=== PATIENT | female | born 1975 | race Caucasian/White ===

== ENCOUNTER 2021-06-22 11:32 | Outpatient (CLI) | payer OTHER, SELFPAY ==
[2021-06-22 13:17] LABS: SARS-CoV-2 RNA PCR Positive (Negative)
== END 2021-06-22 11:33 | disposition home or self-care (01) ==
LOC: CHSLAB 11:35
PROVIDERS: PCP Nurse Practitioner Family; Visit Provider Nurse Practitioner Family
DX: U07.1 COVID-19 (principal); J02.9 Acute pharyngitis, unspecified
CPT/HCPCS: C9803; U0003; U0005

== ENCOUNTER 2021-06-25 12:23 | Outpatient (CLI) | payer OTHER, SELFPAY ==
[2021-06-25] MEDS: ACETAMINOPHEN 325 MG TABLET 650 MG PO (12:49)
[2021-06-25] MEDS: FAMOTIDINE 20 MG TABLET PO (12:50)
[2021-06-25] MEDS: diphenhydrAMINE HCl CAP 25 MG CAPSULE PO (12:50)
[2021-06-25 12:51] VITALS: BMI 24.7
[2021-06-25 12:54] VITALS: BP 107/60; PULSE 68; RESP 12; TEMP 36.8; O2SAT 99
[2021-06-25 14:13] VITALS: BP 102/60; PULSE 64; RESP 12; TEMP 37.1; O2SAT 99
--- NOTE | 2021-06-25 14:14 | PC.NURSE ---
Patient here for Regeneron IV infusion r/t covid positive and meeting high risk scale. Education on medication given. No concerns voiced. Permit signed. PO pre meds and IV regeneron regimen administered. SEE MAR. Tolerated well. Safe exit of hospital.
== END 2021-06-25 12:24 | disposition home or self-care (01) ==
PROVIDERS: PCP Nurse Practitioner Family; Visit Provider Nurse Practitioner Family
DX: Z23 Encounter for immunization (principal); U07.1 COVID-19
CPT/HCPCS: A9270; J7050; M0243

== ENCOUNTER → 2022-11-19 08:55 | Outpatient (CLI) | payer OTHER, SELFPAY ==
--- NOTE | ~2022-11-19 | MR_ITS ---
MRI of the left shoulder Technique: Axial proton-density fat-sat images, coronal proton density fat-sat and T2 fat-sat images, and sagittal T1-weighted and T2 fat-sat images were acquired. Clinical History: Pain Findings: There is moderate AC joint degenerative change, with small subacromial spur present as well as bony productive change of the distal clavicle. Coracoclavicular, coracoacromial, and coracohumera l ligaments are intact. Supraspinatus and infraspinatus tendons are intact, without partial or full-thickness tear. There is minimal tendinosis. Subscapularis tendon is intact with mild tendinosis. Tendon of long head of the b iceps is intact. No labral tear identified. Inferior glenohumeral ligament is intact. No degenerative change or effusion of the glenohumeral join t. No significant fluid distention of the subacromial/subdeltoid bursa. No muscle atrophy or edema. Impression: Mild rotator cuff tendinosis. No partial or full-thickness tear. No labral tear evident. Moderate AC joint degenerative change. Reviewed, dictated and finalized at [facility]. [employer] Impression: Mild rotator cuff tendinosis. No partial or full-thickness tear. No labral tear evident. Moderate AC joint degenerative change.
== END ==
PROVIDERS: PCP Nurse Practitioner Family; Visit Provider Nurse Practitioner Family
DX: M25.512 Pain in left shoulder (principal); R93.6 Abnormal findings on diagnostic imaging of limbs
CPT/HCPCS: 73221

== ENCOUNTER → 2023-01-09 12:56 | Outpatient (CLI) | payer OTHER, SELFPAY ==
--- NOTE | ~2023-01-09 | MR_ITS ---
EXAMINATION: MR cervical spine wo con DATE: 01/09/2023 13:33 INDICATION: Neck and shoulder pain. TECHNIQUE: Magnetic resonance imaging (MRI) of the cervical spine was performed without intravenous c ontrast. COMPARISON: None FINDINGS: There is kyphosis of cervical spine. Vertebral body heights are normal. There is mildly dec reased disc height from C4-C5 through C6-C7. The spinal cord signal intensity is normal. The followin g disc levels are specifically discussed: C2-C3: The disc does not extend beyond the endplate margin. There is no uncovertebral joint osteoarth ritis. There is mild bilateral facet joint osteoarthritis. There is no neural foraminal stenosis. The re is no central canal stenosis. C3-C4: The disc is bulging and has an annular fissure. There is mild bilateral uncovertebral joint os teoarthritis. There is mild right and moderate left facet joint osteoarthritis. There is mild left ne ural foraminal stenosis. There is mild central canal stenosis. C4-C5: The disc is bulging with superimposed central extrusion. There is moderate bilateral uncoverte bral joint osteoarthritis. There is mild bilateral facet joint osteoarthritis. There is no neural for aminal stenosis. There is mild central canal stenosis with ventral indentation of the spinal cord. C5-C6: The disc is bulging. There is moderate right and severe left uncovertebral joint osteoarthriti s. There is no facet joint osteoarthritis. There is mild bilateral neural foraminal stenosis. There i s mild central canal stenosis. C6-C7: The disc is bulging. There is moderate right and severe left uncovertebral joint osteoarthriti s. There is no facet joint osteoarthritis. There is mild left neural foraminal stenosis. There is mil d central canal stenosis. C7-T1: The disc is mildly bulging. There is no uncovertebral joint osteoarthritis. There is no facet joint osteoarthritis. There is no neural foraminal stenosis. There is no central canal stenosis. IMPRESSION: 1. Mild cervical spondylosis. Reviewed, dictated and finalized at location A.
== END ==
PROVIDERS: PCP Nurse Practitioner Family; Visit Provider Nurse Practitioner Family
DX: M47.892 Other spondylosis, cervical region (principal)
CPT/HCPCS: 72141

== ENCOUNTER 2023-03-13 01:36 | Day surgery (SDC) | payer OTHER, SELFPAY ==
[2023-03-01 14:29] VITALS: BMI 24.5
--- NOTE | 2023-03-01 14:35 | PC.NURSE ---
Report to the Outpatient Waiting Room, entrance under the green pavilion located off [facility], at time 0815 on date 03/13/23. Planned Procedure Time: 1015. Time changes happen often and if your time is changed the preop area will call you the afternoon before. - You and your visitor will be asked to self-screen and do not enter if you have any COVID symptoms. - A mask is optional within the hospital at this time. Patients may have clear liquids (water, carbonated beverages, clear teas, apple juice) until 3 hours prior to surgery with a maximum of 20 ounces. - No food from midnight until time of surgery Take the following medications with a SIP of water the morning of surgery: NONE DO NOT STOP ANY OF YOUR OTHER PRESCRIPTION MEDICATIONS PRIOR TO SURGERY ?EXCEPT THE FOLLOWING Medications to discontinue per physician: VITAMINS Date to take last dose: 03/09/23 Please no make-up, nail kyrgyz, hairspray, perfume, deodorant, or body powder the day of surgery. No jewelry (including any body piercings) or valuables the day of surgery, leave them at home. Please take a shower or bath the night before, or the morning of, surgery with an antibacterial soap. Wear comfortable, loose fitting clothing. - Jewelry must be removed prior to entering the operating room. Rings and piercings that are not removed may be cut off. - The hospital will not accept responsibility for valuables. - Please leave all valuables, including medications, at home the day of surgery. If you are going home after surgery, a licensed [employer] flatbed driver must drive you home. - NO public transportation without another adult if you receive anesthesia. - We recommend that an adult stay with you for 24 hours following discharge. - We also recommend that you do not drive, make important decision, drink alcoholic beverages, or take any drugs that were not prescribed by your health care provider for at least 24 hours after your discharge time. Follow any additional instructions given to you from your surgeon. If you or anyone in your household have experienced Covid symptoms in the past week, please notify your surgeon or the nurse liaison at the phone number below for possible testing. Telephone instructions given to PT - ANGELICA RIVERO and asked if any additional questions and then verbalized understanding. Patient advised to call surgeon office or pre surgery nurse liaison [phone] if any additional questions.
--- NOTE | 2023-03-13 07:33 | WPDHPUPDATE1 ---
History and Physical Update Update Date/Time: 03/13/23 07:33 History and Physical has been reviewed, including an updated exam of the patient. There are NO changes in the patient's condition. Risks, benefits, and alternatives have been discussed and questions answered. Patient agrees to proceed with procedure.
--- NOTE | 2023-03-13 07:33 | PM.HPGS ---
History of Present Illness History of Present Illness Consent: Risks, benefits, and alternatives have been discussed and questions answered. Patient agrees to proceed with procedure. Chief complaint: menorrhagia Narrative: Silvestre Gee is a 47 year old female with frequents and long bleeding episodes in August and in January. It is recommended to proceed with D&C hysteroscopy to further evaluate. Risks of infection, bleeding, perforation, and possible pathology were reviewed. The patient has voiced understanding and agrees to proceed. Review of Systems Review of Systems: not repeated day of surgery; patient states no changes in status PMF Past Medical History Medical History (Updated 03/13/23 @ 07:37 by Dory Rodarte MD) Tobacco dependence 26 year smoking history Surgical History Surgical History (Updated 03/13/23 @ 07:36 by Dory Rodarte MD) History of bilateral tubal ligation with 2013 section History of breast augmentation History of D&C 2011 for miscarriage History of laparoscopy with removal of right dermoid and right oophorectomy Hx of section 2013 and 2010 Family History Family History Mother Family history of hypothyroidism Hypertension Father Family history of type 2 diabetes mellitus Hypertension Social History Social History (Updated 10/20/22 @ 09:19 by Jael Leiva MA) Smoking packs per day: 0.5 Smoking cigarettes per day: 10.0 Years smoked: 29 Smoking pack-years: 14.50 Smoking status: Current every day smoker Tobacco type: cigarettes Alcohol intake: current Drinks per week: 5 Substance use: never Substance use type: does not use Lack of Transportation: No Lack of Food: Never True Current Housing: I Have Housing Concerned About Future Housing: No Difficulty Paying Gas/Electric Bills: No Difficulty Paying for Meds: No Currently Unemployed: No Education: Bachelor's Degree Difficulty w/ Childcare or Family Care: No Living arrangements: with family Spiritual care concerns: No Meds Home Medications and Allergies Home Medications Medication Instructions Recorded Confirmed Type conj estrogen-medroxyprogesterone 1 tablet PO DAILY 06/25/21 03/01/23 History 0.625 mg-2.5 mg tablet (Prempro) cholecalciferol (vitamin D3) 125 125 mcg PO DAILY 03/01/23 03/01/23 History mcg (5,000 unit) tablet (Vitamin D3) Allergies Allergy/AdvReac Type Severity Reaction Status Date / Time No Known Allergies Allergy Verified 03/01/23 14:28 Exam Const: General: healthy appearing and alert Orientation/consciousness: patient oriented x3 Resp: Effort & Inspection: normal respiratory effort GI: GI Palp: Yes Soft to palpation, No Tenderness to palpation present (GI) and No Palpable mass present : External Female Exam: normal external appearance Speculum Exam - Vagina: normal appearance of the vagina and normal vaginal discharge Speculum Exam - Cervix: normal appearance of the cervix Bimanual exam- vagina & uterus: uterine size normal and consistency normal Bimanual Exam- Adnexa, other: normal adnexae and No adnexal tenderness Neuro: General: patient oriented x3 Assessment and Plan Assessment and plan (1) Menorrhagia: Code(s): N92.0 - Excessive and frequent menstruation with regular cycle Status: Acute Assessment and Plan: plan to proceed with D&C hysteroscopy
[2023-03-13 08:46] VITALS: BP 122/83; PULSE 59; RESP 14; TEMP 35.9; O2SAT 100
[2023-03-13] MEDS: LACTATED RINGERS 1,000 ML 30 ML IV CONT (08:46)
[2023-03-13] MEDS: ACETAMINOPHEN 500 MG TABLET 1000 MG PO (08:50)
--- NOTE | 2023-03-13 09:22 | WPDANESEPPF ---
Anes - Initial Pre Proc Eval Procedure: Operation Date: 03/13/23 10:15 Proposed Procedures p Hysteroscopy, Dilation and Curettage - Dory Rodarte MD Date/Time: 03/13/23 09:22 Surgeon: Dory Rodarte MD Pre Op Diagnosis: menorrhagia Patient Data Age: 47 Gender: F Height: 1.63 m Weight: 66.8 kg Last Vital Signs Temp 35.9 C L 03/13/23 08:46 Pulse 59 L 03/13/23 08:46 Resp 14 03/13/23 08:46 BP 122/83 03/13/23 08:46 Pulse Ox 100 03/13/23 08:46 O2 Del Method Room Air 03/13/23 08:46 Allergies Allergy/AdvReac Type Severity Reaction Status Date / Time No Known Allergies Allergy Verified 03/13/23 08:53 Home Medications Medication Instructions Recorded Confirmed Type conj estrogen-medroxyprogesterone 1 tablet PO DAILY 06/25/21 03/01/23 History 0.625 mg-2.5 mg tablet (Prempro) cholecalciferol (vitamin D3) 125 125 mcg PO DAILY 03/01/23 03/01/23 History mcg (5,000 unit) tablet (Vitamin D3) Patient hx anesthesia problems: none Family hx anesthesia problems: none Results Review: All pre-operative results and documents have been reviewed as part of the pre-operative evaluation. [facility] Past Medical History Medical History Tobacco dependence 26 year smoking history Surgical History Surgical History History of bilateral tubal ligation with 2013 section History of breast augmentation History of D&C 2011 for miscarriage History of laparoscopy with removal of right dermoid and right oophorectomy Hx of section 2013 and 2010 Family History Family History Mother Family history of hypothyroidism Hypertension Father Family history of type 2 diabetes mellitus Hypertension Social History Social History Smoking packs per day: 0.5 Smoking cigarettes per day: 10.0 Years smoked: 29 Smoking pack-years: 14.50 Smoking status: Current every day smoker Tobacco type: cigarettes Alcohol intake: current Drinks per week: 5 Substance use: never Substance use type: does not use Lack of Transportation: No Lack of Food: Never True Current Housing: I Have Housing Concerned About Future Housing: No Difficulty Paying Gas/Electric Bills: No Difficulty Paying for Meds: No Currently Unemployed: No Education: Bachelor's Degree Difficulty w/ Childcare or Family Care: No Living arrangements: with family Spiritual care concerns: No Anes - Eval Final PreProcedure Day of Procedure 03/13/23 09:22 Patient weight: normal Heart: regular rate and rhythm Lungs: decreased breath sounds Airway: Mallampati scale class II Neurological: alert and oriented Last oral intake: >/= 8 hours ASA classification: II Emergent: no Anesthetic plan: proceed Anesthesia type and monitoring: general GIVS and standard monitoring Results Review: All pre-operative results and documents have been reviewed as part of the pre-operative evaluation. Informed Consent: The patient's anesthetic plan and its attendant risks and benefits were discussed with the patient/family/POA. Questions were solicited and answers provided to the satisfaction of the patient/family/POA.
[2023-03-13] MEDS: LIDO 1%/EPINEPHRINE 1:100,000 50 ML VIAL 10 ML INFILTRATE (10:29)
[2023-03-13 10:38] VITALS: BP 94/51; PULSE 58; RESP 14; O2SAT 100
--- NOTE | 2023-03-13 10:39 | W.PM.PROC2 ---
Procedure Note - Detailed Date of Procedure 03/13/23 Pre-op Diagnosis menorrhagia Post-op Diagnosis Same Procedure Performed D&C hysteroscopy Surgeon Dory Rodarte MD Anesthesia MAC and Local Findings uterus sounds to 8cm and appears grossly normal Description of Procedure The patient is taken to the operating room and placed under anesthesia in the dorsal lithotomy position. Patient was prepped and draped in the usual sterile fashion. [place] speculum was placed in the vagina and the cervix grasped on the anterior lip with a tenaculum. The cervix is injected in each quadrant with 1% lidocaine. The uterus is sounded to 8cm. The diagnostic hysteroscope was placed with no abnormalities noted it is immediately removed. The sharp curette is used to curette the endometrium until a good uterine cry was noted in all areas. All instruments are removed. Sponge, needle, and instrument counts are correct per the OR staff. Patient was awakened from anesthesia and taken to recovery in stable condition. Estimated Blood Loss 5 Drains No Packing No Pathology Yes ( Endometrial curettings) Complications No immediate complications Condition Stable Disposition Floor
[2023-03-13 11:05] VITALS: BP 111/67; PULSE 50; RESP 14
[2023-03-13 11:20] VITALS: BP 101/67; PULSE 46; RESP 14
== END 2023-03-13 11:27 | disposition home or self-care (01) ==
PROVIDERS: PCP Nurse Practitioner Family; Visit Provider Obstetrics & Gynecology Gynecology
PROC: 0U5B8ZZ Destruction of Endometrium, Via Natural or Artificial Opening Endoscopic (ICD-10-PCS; CPT 58563; principal; 2023-03-13 10:15)
DX: N92.0 Excessive and frequent menstruation with regular cycle (principal); F17.210 Nicotine dependence, cigarettes, uncomplicated
CPT/HCPCS: 58558; 88305; A9270; J2250; J2405; J2704; J3010; J7120

== ENCOUNTER 2023-04-17 00:45 | Day surgery (SDC) | payer OTHER, SELFPAY ==
[2023-04-07 12:26] VITALS: BMI 25.2
--- NOTE | 2023-04-07 12:26 | PC.NURSE ---
Report to the Outpatient Waiting Room, entrance under the green pavilion located off [facility], at time 0930 on date 04/17/23. Planned Procedure Time: 1130. Time changes happen often and if your time is changed the preop area will call you the afternoon before. - You and your visitor will be asked to self-screen and do not enter if you have any COVID symptoms. - A mask is optional within the hospital at this time. Patients may have clear liquids (water, carbonated beverages, clear teas, apple juice) until 3 hours prior to surgery with a maximum of 20 ounces. - No food from midnight until time of surgery Take the following medications with a SIP of water the morning of surgery: NONE DO NOT STOP ANY OF YOUR OTHER PRESCRIPTION MEDICATIONS PRIOR TO SURGERY ?EXCEPT THE FOLLOWING Medications to discontinue per physician: VITAMINS Date to take last dose: 04/13/23 Please no make-up, nail south african, hairspray, perfume, deodorant, or body powder the day of surgery. No jewelry (including any body piercings) or valuables the day of surgery, leave them at home. Please take a shower or bath the night before, or the morning of, surgery with an antibacterial soap. Wear comfortable, loose fitting clothing. - Jewelry must be removed prior to entering the operating room. Rings and piercings that are not removed may be cut off. - The hospital will not accept responsibility for valuables. - Please leave all valuables, including medications, at home the day of surgery. If you are going home after surgery, a licensed regional dedicated truck driver must drive you home. - NO public transportation without another adult if you receive anesthesia. - We recommend that an adult stay with you for 24 hours following discharge. - We also recommend that you do not drive, make important decision, drink alcoholic beverages, or take any drugs that were not prescribed by your health care provider for at least 24 hours after your discharge time. Follow any additional instructions given to you from your surgeon. If you or anyone in your household have experienced Covid symptoms in the past week, please notify your surgeon or the nurse liaison at the phone number below for possible testing. Telephone instructions given to PT - ANGELICA RIVERO and asked if any additional questions and then verbalized understanding. Patient advised to call surgeon office or pre surgery nurse liaison [phone] if any additional questions.
[2023-04-17 09:11] VITALS: BP 106/72; PULSE 50; RESP 16; TEMP 36.2; O2SAT 100
[2023-04-17] MEDS: LACTATED RINGERS 1,000 ML 30 ML IV CONT ×2 (09:30→11:45)
[2023-04-17] MEDS: ACETAMINOPHEN 500 MG TABLET 1000 MG PO (09:31)
--- NOTE | 2023-04-17 10:11 | WPDANESEPPF ---
Anes - Initial Pre Proc Eval Procedure: Operation Date: 04/17/23 11:00 Proposed Procedures p Hysteroscopy with Kelsea Endometrial Ablation - Dory Rodarte MD Date/Time: 04/17/23 10:11 Surgeon: Dory Rodarte MD Pre Op Diagnosis: menorrhagia Patient Data Age: 47 Gender: F Height: 1.63 m Weight: 65.7 kg Last Vital Signs Temp 36.2 C L 04/17/23 09:11 Pulse 50 L 04/17/23 09:11 Resp 16 04/17/23 09:11 BP 106/72 04/17/23 09:11 Pulse Ox 100 04/17/23 09:11 O2 Del Method Room Air 04/17/23 09:11 Allergies Allergy/AdvReac Type Severity Reaction Status Date / Time No Known Allergies Allergy Verified 04/17/23 09:35 Home Medications Medication Instructions Recorded Confirmed Type conj estrogen-medroxyprogesterone 1 tablet PO DAILY 06/25/21 04/17/23 History 0.625 mg-2.5 mg tablet (Prempro) cholecalciferol (vitamin D3) 125 125 mcg PO DAILY 03/01/23 04/17/23 History mcg (5,000 unit) tablet (Vitamin D3) Patient hx anesthesia problems: none Family hx anesthesia problems: none Results Review: All pre-operative results and documents have been reviewed as part of the pre-operative evaluation. [facility] Past Medical History Medical History Tobacco dependence 26 year smoking history Surgical History Surgical History History of bilateral tubal ligation with 2013 section History of breast augmentation History of D&C 2011 for miscarriage History of laparoscopy with removal of right dermoid and right oophorectomy Hx of section 2013 and 2010 Family History Family History Mother Family history of hypothyroidism Hypertension Father Family history of type 2 diabetes mellitus Hypertension Social History Social History Smoking packs per day: 0.5 Smoking cigarettes per day: 10.0 Years smoked: 29 Smoking pack-years: 14.50 Smoking status: Current every day smoker Tobacco type: cigarettes Alcohol intake: current Drinks per week: 5 Substance use: never Substance use type: does not use Lack of Transportation: No Lack of Food: Never True Current Housing: I Have Housing Concerned About Future Housing: No Difficulty Paying Gas/Electric Bills: No Difficulty Paying for Meds: No Currently Unemployed: No Education: Bachelor's Degree Difficulty w/ Childcare or Family Care: No Living arrangements: with family Spiritual care concerns: No Anes - Eval Final PreProcedure Day of Procedure 04/17/23 10:11 Patient weight: normal Heart: regular rate and rhythm Lungs: clear to auscultation Airway: Mallampati scale class II Neurological: alert and oriented Last oral intake: >/= 8 hours ASA classification: II Emergent: no Anesthetic plan: proceed Anesthesia type and monitoring: general GIVS and standard monitoring Results Review: All pre-operative results and documents have been reviewed as part of the pre-operative evaluation. Informed Consent: The patient's anesthetic plan and its attendant risks and benefits were discussed with the patient/family/POA. Questions were solicited and answers provided to the satisfaction of the patient/family/POA.
--- NOTE | 2023-04-17 10:32 | WPDHPUPDATE1 ---
History and Physical Update Update Date/Time: 04/17/23 10:32 History and Physical has been reviewed, including an updated exam of the patient. There are NO changes in the patient's condition. Risks, benefits, and alternatives have been discussed and questions answered. Patient agrees to proceed with procedure.
--- NOTE | 2023-04-17 10:32 | PM.HPGS ---
History of Present Illness History of Present Illness Consent: Risks, benefits, and alternatives have been discussed and questions answered. Patient agrees to proceed with procedure. Chief complaint: menorrhagia Narrative: Silvestre Gee is a 47 year old female with menorrhagia who presents for endometrial ablation with Kelsea device. Risks of infection, bleeding, perforation, and device failure are reviewed. Patient voices understanding and agrees to proceed. Review of Systems Review of Systems: not repeated day of surgery; patient states no changes in status PMFSH Past Medical History Medical History Tobacco dependence 26 year smoking history Surgical History Surgical History (Updated 04/17/23 @ 10:34 by Dory Rodarte MD) History of bilateral tubal ligation with 2013 section History of breast augmentation History of D&C 2011 for miscarriage History of hysteroscopy March of 2023 benign History of laparoscopy with removal of right dermoid and right oophorectomy Hx of section 2013 and 2010 Family History Family History Mother Family history of hypothyroidism Hypertension Father Family history of type 2 diabetes mellitus Hypertension Social History Social History Smoking packs per day: 0.5 Smoking cigarettes per day: 10.0 Years smoked: 29 Smoking pack-years: 14.50 Smoking status: Current every day smoker Tobacco type: cigarettes Alcohol intake: current Drinks per week: 5 Substance use: never Substance use type: does not use Lack of Transportation: No Lack of Food: Never True Current Housing: I Have Housing Concerned About Future Housing: No Difficulty Paying Gas/Electric Bills: No Difficulty Paying for Meds: No Currently Unemployed: No Education: Bachelor's Degree Difficulty w/ Childcare or Family Care: No Living arrangements: with family Spiritual care concerns: No Meds Home Medications and Allergies Home Medications Medication Instructions Recorded Confirmed Type conj estrogen-medroxyprogesterone 1 tablet PO DAILY 06/25/21 04/17/23 History 0.625 mg-2.5 mg tablet (Prempro) cholecalciferol (vitamin D3) 125 125 mcg PO DAILY 03/01/23 04/17/23 History mcg (5,000 unit) tablet (Vitamin D3) Allergies Allergy/AdvReac Type Severity Reaction Status Date / Time No Known Allergies Allergy Verified 04/17/23 09:35 Vital Signs Vital Signs - 24 hr 04/17/23 09:11 Temperature 97.2 F L Pulse Rate 50 L Respiratory Rate 16 Blood Pressure 106/72 Pulse Oximetry 100 Oxygen Delivery Room Air Exam Const: General: healthy appearing and alert Orientation/consciousness: patient oriented x3 Resp: Effort & Inspection: normal respiratory effort GI: GI Palp: Yes Soft to palpation, No Tenderness to palpation present (GI) and No Palpable mass present : External Female Exam: normal external appearance Speculum Exam - Vagina: normal appearance of the vagina and normal vaginal discharge Speculum Exam - Cervix: normal appearance of the cervix Bimanual exam- vagina & uterus: uterine size normal and consistency normal Bimanual Exam- Adnexa, other: normal adnexae and No adnexal tenderness Neuro: General: patient oriented x3 Assessment and Plan Assessment and plan (1) Menorrhagia: Code(s): N92.0 - Excessive and frequent menstruation with regular cycle Status: Acute Assessment and Plan: plan to proceed with Kelsea endometrial ablation
[2023-04-17 11:45] VITALS: BP 91/58; PULSE 51; RESP 14; O2SAT 96
--- NOTE | 2023-04-17 11:48 | W.PM.PROC2 ---
Procedure Note - Detailed Date of Procedure 04/17/23 Pre-op Diagnosis menorrhagia Post-op Diagnosis Same Procedure Performed Kelse[place] endometrial ablation Surgeon Dory Rodarte MD Anesthesia MAC and Local Findings uterus sounds to 9cm and appears grossly normal Description of Procedure The patient is taken to the operating room and placed under anesthesia in the dorsal lithotomy position. She was prepped and draped in the usual sterile fashion. [place] speculum was placed in the vagina and the cervix grasped on the anterior lip with a tenaculum. The cervix is injected in each quadrant with 1% lidocaine. The uterus is sounded to 9cm. The hysteroscope was placed and with no abnormalities noted it is removed. The cervix is serially dilated to an 8 Hegar. The [place]elsea device is opened and placed. The cavity assessment passed on the 1st attempt and the treatment cycle lasted the full 2minutes. The Kelsea device was removed and the hysteroscope replaced. Good ablation effect is noted. All instruments are removed. Sponge, needle, and instrument counts are correct per the OR staff. The patient is awakened from anesthesia and taken to recovery in stable condition. Estimated Blood Loss 5 Drains No Packing No Pathology None sent Complications No immediate complications Condition Stable Disposition PACU
[2023-04-17 12:15] VITALS: BP 105/62; PULSE 45; RESP 14
[2023-04-17 12:45] VITALS: BP 111/70; PULSE 48; RESP 14
== END 2023-04-17 13:05 | disposition home or self-care (01) ==
PROVIDERS: PCP Nurse Practitioner Family; Visit Provider Obstetrics & Gynecology Gynecology
PROC: 0U5B8ZZ Destruction of Endometrium, Via Natural or Artificial Opening Endoscopic (ICD-10-PCS; CPT 58563; principal; 2023-04-17 11:00)
DX: N92.0 Excessive and frequent menstruation with regular cycle (principal); F17.210 Nicotine dependence, cigarettes, uncomplicated
CPT/HCPCS: 58563; A9270; J2250; J2704; J3010; J7120